=== PATIENT | female | born 1955 | race Caucasian/White ===

== ENCOUNTER → 2022-11-16 | Outpatient (CLI) | payer MEDICARE, SELFPAY ==
[2022-11-16 12:53] LABS: ALB/GLOB Ratio 1.3 RATIO (0.9-2.4); AST(SGOT) 11 U/L (15-37); Alanine Aminotransfer ALT/SGPT 17 U/L (13-56); Albumin, Serum 3.6 g/dL (3.2-5.0); Alkaline Phosphatase 60 U/L (45-117); Anion Gap 6 (5-15); BUN 9 mg/dL (7-18); BUN/Creat Ratio 9.8 RATIO (10-20); Calcium,Total 9.1 mg/dL (8.5-10.1); Chloride 108 mmol/L (98-107); Cholesterol 237 mg/dL (200); Creatinine, Serum 0.92 mg/dL (0.55-1.02); EST Glomerular Filtration Rate 64 mL/min (>60); Est Glom Filt Rate - Afr Amer 78 mL/min (>60); Globulin 2.8 g/dL (2.2-4.2); Glucose 99 mg/dL (74-106); High Density Lipoprotein 39 mg/dL; Potassium 4.2 mmol/L (3.5-5.1); Protein, Total 6.4 g/dL (6.4-8.2); Sodium Level 141 mmol/L (136-145); Triglycerides 137 mg/dL; Very Low Density Lipoprotein 27 mg/dL (5-40)
== END | disposition home or self-care (01) ==
LOC: MFPLAB 11:20
PROVIDERS: PCP Family Medicine; Referring Provider Family Medicine; Visit Provider Family Medicine
DX: E78.2 Mixed hyperlipidemia (principal)
CPT/HCPCS: 36415; 80053; 80061

== ENCOUNTER → 2023-12-27 | Outpatient (CLI) | payer MEDICARE, SELFPAY ==
[2023-12-27 15:41] LABS: Absolute Lymphocyte Count 1.78 X10^3/uL (0.83-4.51); Absolute Neutrophil Count 3.5 X10^3/uL (2.0-7.7); Basophil# 0.02 X10^3/uL; Basophil% 0.3 % (0-1); Eosinophil# 0.19 X10^3/uL; Eosinophils% 3.2 % (0-5); Hematocrit 44.8 % (37-47); Hemoglobin 14.1 g/dL (12.0-15.0); Lymphocyte # 1.78 X10^3/ul (0.83-4.51); Lymphocyte % 29.9 % (19-41); Mean Corp Hgb Conc 31.5 g/dL (32-36); Mean Corpuscular Hgb 29.4 pg (27.0-32.0); Mean Corpuscular Volume 93.3 fL (81-99); Mean Platelet Vol. 9.7 fl (6.2-12.0); Monocyte# 0.43 X10^3/uL; Monocyte% 7.2 % (0-10); NRBC Flagged by Analyzer 0 % (0-5); Neutrophil # 3.53 X10^3/uL (2.7-7.7); Neutrophil % 59.2 % (47-70); Platelet Count 233 K/mm3 (150-450); RBC Distribution Width CV 13.2 % (11.6-14.6); RBC Distribution Width SD 45.9 fl (35.1-43.9)
[2023-12-27 16:06] LABS: ALB/GLOB Ratio 1.2 RATIO (0.9-2.4); AST(SGOT) 18 U/L (15-37); Alanine Aminotransfer ALT/SGPT 25 U/L (13-56); Albumin, Serum 3.7 g/dL (3.2-5.0); Alkaline Phosphatase 68 U/L (45-117); Anion Gap 5 (5-15); BUN 13 mg/dL (7-18); BUN/Creat Ratio 12.7 RATIO (10-20); Calcium,Total 9.4 mg/dL (8.5-10.1); Chloride 109 mmol/L (98-107); Cholesterol 238 mg/dL (200); Creatinine, Serum 1.02 mg/dL (0.55-1.02); EST Glomerular Filtration Rate 57 mL/min (>60); Est Glom Filt Rate - Afr Amer 69 mL/min (>60); Globulin 3.2 g/dL (2.2-4.2); Glucose 99 mg/dL (74-106); High Density Lipoprotein 37 mg/dL; Potassium 3.9 mmol/L (3.5-5.1); Protein, Total 6.9 g/dL (6.4-8.2); Sodium Level 141 mmol/L (136-145); Thyroid Stim Hormone (TSH) 1.63 uIU/mL (0.358-3.74); Triglycerides 176 mg/dL; Very Low Density Lipoprotein 35 mg/dL (5-40)
== END | disposition home or self-care (01) ==
LOC: MFPLAB 11:29
PROVIDERS: Family Medicine; PCP Family Medicine; Visit Provider Family Medicine
DX: E78.2 Mixed hyperlipidemia (principal); R06.02 Shortness of breath
CPT/HCPCS: 36415; 80053; 80061; 84443; 85025

== ENCOUNTER → 2024-01-10 | Outpatient (CLI) | payer MEDICARE, SELFPAY ==
--- NOTE | 2024-01-10 12:22 | BD_ITS ---
STUDY: DUAL ENERGY X-RAY ABSORPTIOMETRY / DXA REASON FOR EXAM: Female, 68 years old. [id number] TECHNIQUE: Bone Mineral Density (BMD) measurements of lumbar spine and bilateral hips were obtained. COMPARISON: None. FINDINGS: Lumbar Spine (L1-L4): g/cm2 (0.785) / T-score (-2.4) / Z-score (-0.3) Findings are suggestive of osteopenia with a high fracture risk. Left Femur Total: g/cm2 (0.803) / T-score (-1.1) / Z-score (-0.4) Left Femoral Neck: g/cm2 (0.584) / T-score (-2.4) / Z-score (-0.6) Right Femur Total: g/cm2 (0.794) / T-score (-1.2) / Z-score (0.3) Right Femoral Neck: g/cm2 (0.619) / T-score (-2.1) / Z-score (-0.3) BD/Dexa Bone Density Study IMPRESSION: The patient is considered osteopenic as outlined below according to World [employer] Organization (WHO) criteria with a high fracture risk. Reference Information: The T-score is the number of standard deviations above or below the standard which is normal for young adults at their peak bone mineral density. The World Health Organization (WHO) interprets the T-scores as follows: Above -1 Normal bone density Between -1 and -2.5 Osteopenia Equal to / or below -2.5 Osteoporosis As a practical clinical guideline, osteopenia may be graded as follows: Mild -1 through -1.5 Moderate -1.6 through -2.0 Severe -2.1 through -2.4 The Z-score is the number of standard deviations above or below age-matched controls. A Z-score of less than -1.5 would be considered abnormal. References: 1. NIH Osteoporosis and Related Bone Diseases www osteo.org 2. International Society for Clinical Densitometry www iscd.org 3. National Osteoporosis Foundation www nof.org Electronically Signed: Deandre John MD at 15:19 EDT ,
== END | disposition home or self-care (01) ==
LOC: OPBD 12:16
PROVIDERS: PCP Family Medicine; Referring Provider Family Medicine; Visit Provider Family Medicine
DX: M81.0 Age-related osteoporosis without current pathological fracture (principal)
CPT/HCPCS: 77080

== ENCOUNTER → 2024-02-02 | Outpatient (CLI) | payer MEDICARE, SELFPAY ==
--- NOTE | 2024-02-02 12:34 | ECHOD_ITS ---
Reason For Study: Mitral Valve Disorder Procedure This was a 2D Doppler, Color Flow transthoracic echocardiogram. Exam performed in department. Left Ventricle Normal LV size. The estimated ejection fraction is 60 %. No evidence for diastolic dysfunction. No regional wall motion abnormalities noted. Right Ventricle Normal RV size. Normal systolic function. Atria Normal left atrium. Normal right atrium. No doppler evidence for ASD. Mitral Valve There is no mitral valve stenosis. Trivial mitral valve insufficiency. Tricuspid Valve There is no tricuspid stenosis. Trivial tricuspid valve insufficiency. Unable to estimate RV systolic pressure due to insufficient tricuspid regurgitant envelope. Aortic Valve Trisinus/trileaflet aortic valve. There is no aortic stenosis. Trivial aortic valve insufficiency. Pulmonic Valve There is no pulmonic valvular stenosis. No pulmonic valve insufficiency. Great Vessels Normal aortic root. Pericardium/Pleural No pericardial effusion. MMode/2D Measurements & Calculations LVIDd: 4.2 cm IVSd: 0.94 cm LA dimension: 3.7 cm LVIDs: 2.9 cm LVPWd: 0.87 cm RVDd: 3.8 cm FS: 32.0 % LAV(MOD-bp): 51.4 ml LVAd ap4: 25.5 cm2 SV(MOD-sp4): 40.2 ml LAV(MOD-bp) Indexed: 26.6 ml/m2 LVLd ap4: 7.5 cm LAV(MOD-sp2): 57.0 ml EDV(MOD-sp4): 69.7 ml LAV(MOD-sp4): 40.8 ml EDV(sp4-el): 73.6 ml LVAs ap4: 15.4 cm2 LVLs ap4: 6.6 cm ESV(MOD-sp4): 29.5 ml ESV(sp4-el): 30.2 ml EF(MOD-sp4): 57.7 % EF(sp4-el): 58.9 % SV(sp4-el): 43.4 ml LA A4 area: 15.3 cm2 RA A4 area: 14.0 cm2 TAPSE: 2.3 cm Time Measurements MV dec time: 0.16 sec Doppler Measurements & Calculations MV E max carlos: 56.6 cm/sec Lat Peak E' Carlos: 6.8 cm/sec Med Peak E' Carlos: 6.6 cm/sec MV A max carlos: 73.4 cm/sec E/E' lat: 8.3 E/E' med: 8.6 MV E/A: 0.77 MV V2 max: 93.3 cm/sec MV P1/2t max carlos: 62.0 cm/sec Ao V2 max: 128.7 cm/sec MV max P.5 mmHg MV P1/2t: 55.0 msec Ao max P.6 mmHg MV V2 mean: 44.1 cm/sec MV dec slope: 330.1 cm/sec2 Ao V2 mean: 90.3 cm/sec MV mean P.95 mmHg Ao mean P.7 mmHg MV V2 VTI: 21.4 cm MVA(P1/2t): 4.0 cm2 Ao V2 VTI: 33.5 cm AV (velocity ratio): 0.61 AI max carlos: 456.0 cm/sec LV V1 max: 82.9 cm/sec PA V2 max: 78.6 cm/sec AI max P.2 mmHg LV V1 max P.8 mmHg PA V2 mean: 63.0 cm/sec AI dec slope: 382.4 cm/sec2 LV V1 mean P.6 mmHg AI P1/2t: 349.3 msec LV V1 mean: 61.3 cm/sec LV V1 VTI: 20.5 cm TR max carlos: 253.1 cm/sec TR max P.6 mmHg ECHO/Echo Complete Interpretation Summary The estimated ejection fraction is 60 %. No evidence for diastolic dysfunction. Trivial mitral valve insufficiency. Trivial aortic valve insufficiency. Ordering Physician: Meme Logan Referring Physician: Meme Logan Performed By: Zeyad Spicer RCS
== END | disposition home or self-care (01) ==
LOC: CVS 12:33
PROVIDERS: PCP Family Medicine; Referring Provider Family Medicine; Visit Provider Family Medicine
DX: R06.02 Shortness of breath (principal); I05.9 Rheumatic mitral valve disease, unspecified
CPT/HCPCS: 93306

== ENCOUNTER → 2024-11-04 | Outpatient (CLI) | payer MEDICARE, SELFPAY ==
--- NOTE | 2024-11-04 11:04 | RAD_ITS ---
EXAM: XR LUMBOSACRAL SPINE, 2 OR 3 VIEWS CLINICAL INDICATION: Back pain TECHNIQUE: Frontal and lateral views of the lumbar spine and sacrum. COMPARISON: No relevant prior studies available. FINDINGS: VERTEBRAE: Grade 1 degenerative anterolisthesis of L4 on L5. Preserved vertebral body height. No fracture. No other spondylolisthesis. Preservation of the normal lumbar lordosis. No significant facet arthropathy. SPACES: No acute findings. Disc spaces are maintained. GASTROINTESTINAL TRACT: Unremarkable as visualized. Included bowel gas pattern is non-obstructive. RAD/Lumbar Spine 2 or 3 Views IMPRESSION: No acute findings in the lumbar spine. No acute or healing fracture or malalignment Electronically Signed: Ruben Guerrero MD at 13:09 EST ,
--- NOTE | 2024-11-04 11:06 | RAD_ITS ---
STUDY: X-RAY - PELVIS AND RIGHT HIP REASON FOR EXAM: Female, 68 years old. Hip pain. TECHNIQUE: 3 views of the pelvis and right hip. COMPARISON: None. FINDINGS: There is a non-specific bowel gas pattern. Normal visualized soft tissue structures. Normal bilateral iliac wings, sacroiliac joints and visualized sacrum. Normal bilateral superior and inferior pubic rami. Normal pubic symphysis. Normal bilateral ischial tuberosities. Normal visualized femoral head. Normal acetabulum. Normal hip joint. There is no demonstrated acute fracture. RAD/HIP, UNI W/ Pelvis 2-3 Views IMPRESSION: Normal x-ray examination of the pelvis and right hip. Electronically Signed: Raul Ace MD at 16:12 EST ,
== END | disposition home or self-care (01) ==
LOC: MTRAD 11:04
PROVIDERS: PCP Family Medicine; Referring Provider Family Medicine; Visit Provider Family Medicine
DX: M54.40 Lumbago with sciatica, unspecified side (principal)
CPT/HCPCS: 72100; 73502

== ENCOUNTER 2025-06-14 09:16 | Emergency (ER) | payer MEDICARE, SELFPAY ==
[2025-06-14 09:21] VITALS: BP 137/94; PULSE 76; RESP 18; TEMP 36.9; O2SAT 98
[2025-06-14 09:27] VITALS: BMI 34.7
--- NOTE | 2025-06-14 09:32 | RAD_ITS ---
PROCEDURE: FOOT MIN 3 VIEWS 06/14/2025 REASON FOR EXAM: PAIN TECHNIQUE: FOOT MIN 3 VIEWS Laterality: Right COMPARISON: None. FINDINGS: Bones: No acute bony abnormalities. Joints: Unremarkable. No dislocation. Soft tissues: No soft tissue abnormalities. Other: RAD/Foot min 3 Views IMPRESSION: No acute osseous abnormalities. Reading Location: [id number]
--- OUTSIDE RECORDS SUMMARY | 2025-06-14 10:12 | XMS RPT_ITS | CCD ---
Author Organization [facility] Inform ion Partnership [facility] Care Team Providers Care Process Engineering Intern Name Role Phone MD Meme Logan Primary Care Provider Dr. Herminio Timmons Attending Provider [phone] Ladonna Pond Attending Unavailable Ladonna Pond Referring Unavailable Desmond, Meme Primary Care Unavailable Ladonna Pond Primary Care Unavailable Ladonna Pond Attending Unavailable Desmond, Meme Referring Unavailable Desmond, Meme Primary Care Unavailable Meme Logan Attending Unavailable Meme Logan Referring Unavailable Desmond, Marlineon Primary Care Unavailable Desmond, Meme Attending Unavailable Herminio Timmons Attending Unavailabl e Desmond, Meme Primary Care Unavailable Problems Active Problems Problem Classification Problem Date Documented Da te Episodic/Chronic Disorders of lipid metabolism (1 source) Mixed hyperlipidemia; Translations: [Mixed hyperlipidemia] Onset: 01-03-2024 Chronic Osteoporosis (1 source) Age-related osteoporosis without current pathological fracture; Translations: [Age-related osteoporosis without current pathological fracture] Onset: 01-16-2024 Chronic Spondylosis; intervertebral disc disorders; other back problems (1 source) Lumbago with sciatica, unspecified side; Translations: [Lumbago with sciatica, unspecified side] Onset: 11-25-2024 Episodic Past or Other Problems Problem Classification Problem Date Documented Da te Episodic/Chronic Other lower respiratory disease (1 source) Shortness of breath; Translations: [Shortness of breath] Onset: 02-07-2024 Episodic Results Test Name Value Interpretation Reference Range Facility HIP, UNI W/ Pelvis 2-3 Views on 11-04-2024 HIP, UNI W/ Pelvis 2-[address] [facility] Imaging Services [address] [place] [id number] HIP, UNI W/ Pelvis 2-3 Views MR#: [id number] Acct: [id number] Name: ASHLEY AYALA Rep #: [id number] : 1955 F 68 From: Raul Ace MD PCP: Dr. Meme Logan MD Status: REG CLI Study: HIP, UNI W/ Pelvis 2-3 Views Date of Exam: Exam# [id number] Ordering Dr: Meme Logan MD [id number] STUDY: X-RAY - PELVIS AND RIGHT HIP REASON FOR EXAM: Female, 68 years old. Hip pain. TECHNIQUE: 3 views of the pelvis and right hip. COMPARISON: None. FINDINGS: There is a non-specific bowel gas pattern. Normal visualized soft tissue structures. Normal bilateral iliac wings, sacroiliac joints and visualized sacrum. Normal bilateral superior and inferior pubic rami. Normal pubic symphysis. Normal bilateral ischial tuberosities. Normal visualized femoral head. Normal acetabulum. Normal hip joint. There is no demonstrated acute fracture. RAD/HIP, UNI W/ Pelvis 2-3 Views IMPRESSION: Normal x-ray examination of the pelvis and right hip. Electronically Signed: Raul Ace MD at 16:12 EST Reading Location ID and State: [facility] / [place] , Service support , CC: Dr. Meme Logan MD Feeder Operator: Signed Normal [facility] Lumbar Spine 2 or 3 Viewson 11-04-2024 Lumbar Spine 2 or [address] [facility] Imaging Services [address], [place] [address] Lumbar Spine 2 or 3 Views MR#: [id number] Acct: [id number] Name: ASHLEY AYALA Rep #: [id number] : 1955 F 68 From: Ruben Guerrero MD PCP: Dr. Meme Logan MD Status: REG CLI Study: Lumbar Spine 2 or 3 Views Date of Exam: Exam# [id number] Ordering Dr: Meme Logan MD [id number] EXAM: XR LUMBOSACRAL SPINE, 2 OR 3 VIEWS CLINICAL INDICATION: Back pain TECHNIQUE: Frontal and lateral views of the lumbar spine and sacrum. COMPARISON: No relevant prior studies available. FINDINGS: VERTEBRAE: Grade 1 degenerative anterolisthesis of L4 on L5. Preserved vertebral body height. No fracture. No other spondylolisthesis. Preservation of the normal lumbar lordosis. No significant facet arthropathy. SPACES: No acute findings. Disc spaces are maintained. GASTROINTESTINAL TRACT: Unremarkable as visualized. Included bowel gas pattern is non-obstructive. RAD/Lumbar Spine 2 or 3 Views IMPRESSION: No acute findings in the lumbar spine. No acute or healing fracture or malalignment Electronically Signed: Ruben Guerrero MD at 13:09 EST Reading Location ID and State: [facility] / [place] Tel , Service support , CC: Dr. Meme Logan MD Feeder Operator: Signed Normal [facility] Echo Completeon 02-02-2024 Echo Complete [facility] Cardiovascular Services [address] [place] [address] Echo Complete 02/02/24 1302 MR#: [id number] Acct: [id number] Name: ASHLEY AYALA Rep #: [id number] : 1955 68 From: Herminio Timmons MD Attending Dr: Dr. Meme Logan MD Status: REG C Ordering Dr: Meme Logan MD Date: 02/02/24 Location: [facility] Sex: F C Admitted: Reason For Study: Mitral Valve Disorder Procedure This was a 2D Doppler, Color Flow transthoracic echocardiogram. Exam performed in department. Left Ventricle Normal LV size. The estimated ejection fraction is 60 %. No evidence for diastolic dysfunction. No regional wall motion abnormalities noted. Right Ventricle Normal RV size. Normal systolic function. Atria Normal left atrium. Normal right atrium. No doppler evidence for ASD. Mitral Valve There is no mitral valve stenosis. Trivial mitral valve insufficiency. Tricuspid Valve There is no tricuspid stenosis. Trivial tricuspid valve insufficiency. Unable to estimate RV systolic pressure due to insufficient tricuspid regurgitant envelope. Aortic Valve Trisinus/trileaflet aortic valve. There is no aortic stenosis. Trivial aortic valve insufficiency. Pulmonic Valve There is no pulmonic valvular stenosis. No pulmonic valve insufficiency. Great Vessels Normal aortic root. Pericardium/Pleural No pericardial effusion. MMode/2D Measurements Calculations LVIDd: 4.2 cm IVSd: 0.94 cm LA dimension: 3.7 cm LVIDs: 2.9 cm LVPWd: 0.87 cm RVDd: 3.8 cm FS: 32.0 % _ LAV(MOD-bp): 51.4 ml LVAd ap4: 25.5 cm2 SV(MOD-sp4): 40.2 ml LAV(MOD-bp) Indexed: 26.6 ml/m2 LVLd ap4: 7.5 cm LAV(MOD-sp2): 57.0 ml EDV(MOD-sp4): 69.7 ml LAV(MOD-sp4): 40.8 ml EDV(sp4-el): 73.6 ml LVAs ap4: 15.4 cm2 LVLs ap4: 6.6 cm ESV(MOD-sp4): 29.5 ml ESV(sp4-el): 30.2 ml EF(MOD-sp4): 57.7 % EF(sp4-el): 58.9 % _ SV(sp4-el): 43.4 ml LA A4 area: 15.3 cm2 RA A4 area: 14.0 cm2 _ TAPSE: 2.3 cm Time Measurements MV dec time: 0.16 sec Doppler Measurements Calculations MV E max carlos: 56.6 cm/sec Lat Peak E' Carlos: 6.8 cm/sec Med Peak E' Carlos: 6.6 cm/sec MV A max carlos: 73.4 cm/sec E/E' lat: 8.3 E/E' med: 8.6 MV E/A: 0.77 _ MV V2 max: 93.3 cm/sec MV P1/2t max carlos: 62.0 cm/sec Ao V2 max: 128.7 cm/sec MV max P.5 mmHg MV P1/2t: 55.0 msec Ao max P.6 mmHg MV V2 mean: 44.1 cm/sec MV dec slope: 330.1 cm/sec2 Ao V2 mean: 90.3 cm/sec MV mean P.95 mmHg Ao mean P.7 mmHg MV V2 VTI: 21.4 cm MVA(P1/2t): 4.0 cm2 Ao V2 VTI: 33.5 cm AV (velocity ratio): 0.61 _ AI max carlos: 456.0 cm/sec LV V1 max: 82.9 cm/sec PA V2 max: 78.6 cm/sec AI max P.2 mmHg LV V1 max P.8 mmHg PA V2 mean: 63.0 cm/sec AI dec slope: 382.4 cm/sec2 LV V1 mean P.6 mmHg AI P1/2t: 349.3 msec LV V1 mean: 61.3 cm/sec LV V1 VTI: 20.5 cm _ TR max carlos: 253.1 cm/sec TR max P.6 mmHg ECHO/Echo Complete Interpretation Summary The estimated ejection fraction is 60 %. No evidence for diastolic dysfunction. Trivial mitral valve insufficiency. Trivial aortic valve insufficiency. Ordering Physician: Meme Logan Referring Physician: Meme Logan Performed By: Zeyad Spicer RCS 02/02/24 1519 Date Herminio Timmons MD CC: Dr. Meme Logan MD Date Dictated: 02/02/24 1302 Date Transcribed: 02/02/24 1519 Feeder Operator: Signed Normal [facility] Dexa Bone Density Studyon Dexa Bone Density Study [facility] Imaging Services [address] [place] [address] Dexa Bone Density Study MR#: [id number] Acct: [id number] Name: ASHLEY AYALA Rep #: [id number] : 1955 F 68 From: Deandre manzo MD PCP: Dr. Meme Logan MD Status: REG CLI Study: Dexa Bone Density Study Date of Exam: 01/10/24 Exam# [id number] Ordering Dr: Ladonna Pond DO [id number] STUDY: DUAL ENERGY X-RAY ABSORPTIOMETRY / DXA REASON FOR EXAM: Female, 68 years old. [id number] TECHNIQUE: Bone Mineral Density (BMD) measurements of lumbar spine and bilateral hips were obtained. COMPARISON: None. FINDINGS: Lumbar Spine (L1-L4): g/cm2 (0.785) / T-score (-2.4) / Z-score (-0.3) Findings are suggestive of osteopenia with a high fracture risk. Left Femur Total: g/cm2 (0.803) / T-score (-1.1) / Z-score (-0.4) Left Femoral Neck: g/cm2 (0.584) / T-score (-2.4) / Z-score (-0.6) Right Femur Total: g/cm2 (0.794) / T-score (-1.2) / Z-score (0.3) Right Femoral Neck: g/cm2 (0.619) / T-score (-2.1) / Z-score (-0.3) BD/Dexa Bone Density Study IMPRESSION: The patient is considered osteopenic as outlined below according to World [employer] Organization (WHO) criteria with a high fracture risk. Reference Information: The T-score is the number of standard deviations above or below the standard which is normal for young adults at their peak bone mineral density. The World Health Organization (WHO) interprets the T-scores as follows: Above -1 Normal bone density Between -1 and -2.5 Osteopenia Equal to / or below -2.5 Osteoporosis As a practical clinical guideline, osteopenia may be graded as follows: Mild -1 through -1.5 Moderate -1.6 through -2.0 Severe -2.1 through -2.4 The Z-score is the number of standard deviations above or below age-matched controls. A Z-score of less than -1.5 would be considered abnormal. References: 1. NIH Osteoporosis and Related Bone Diseases www osteo.org 2. International Society for Clinical Densitometry www iscd.org 3. National Osteoporosis Foundation www nof.org Electronically Signed: Deandre John MD at 15:19 EDT , CC: Dr. Meme Logan MD; Ladonna Pond DO Feeder Operator: Signed Normal [facility] Absolute lymphocyte countOrd ered By: Meme Logan on 12-27-2023 Lymphocytes Auto (Unsp spec) [#/Vol] 1.78 10*3/uL 0.83-4.51 [facility] Automated lymphocyte count a s percentage of total leukocytesOrdered By: Meme Logan on 12-27-2023 Lymphocytes/100 WBC Auto (Unsp spec) 29.9 % 19-41 [facility] Basophil percentageOrdered B y: Meme Logan on 12-27-2023 Basophils/100 WBC (Bld) 0.3 % 0-1 [facility] Bilirubin [Mass/Vol] 0.70 mg/dL 0.20-1.00 [facility] Comment on above: For patients on eltr ombopag therapy, use of Dimension [place] TBIL is not recommended. Chloride [Moles/Vol] 109 mmol/L 98-107 [facility] Cholesterol [Mass/Vol] 238 mg/dL <200 [facility] Comment on above: <200 mg/dL Desirable 200-240 mg/dL Borderline >240 mg/dL High Risk Eosinophils/100 WBC (Bld) 3.2 % 0-5 [facility] Glucose [Mass/Vol] 99 mg/dL 74-106 [facility] Hemoglobin (Bld) [Mass/Vol] 14.1 g/dL 12.0-15.0 [facility] Monocytes/100 WBC (Bld) 7.2 % 0-10 [facility] Neutrophils (Bld) [#/Vol] 3.5 10*3/uL 2.0-7.7 [facility] Neutrophils/100 WBC (Bld) 59.2 % 47-70 [facility] Potassium [Moles/Vol] 3.9 mmol/L 3.5-5.1 [facility] Protein [Mass/Vol] 6.9 g/dL 6.4-8.2 [facility] Sodium [Moles/Vol] 141 mmol/L 136-145 [facility] Triglyceride [Mass/Vol] 176 mg/dL <199 [facility] Comment on above: The drugs N-Acetylcy steine and Metamizole may falsely depress this assay.Serum Triglycerides Reference Interval Normal <150 mg/dL Borderline high 150 - 199 mg/dL High 200 - 499 mg/dL Very High > or = 500 mg/dL WBC (Bld) [#/Vol] 6.0 10*3/uL 4.4-11.0 [facility] CBC W/Diff, Automatedon Absolute Lymph 1.78 X10 3/uL Normal 0.83-4.51 [facility] Comment on above: Order Comment: Order Date: 12/27/23 Order Info: 0184-1 - CBCD Performed By: #### L 100.0100, L500.4100, L501.0620, L500.4050 #### [facility] [address] [place], [address] Absolute Neut 3.5 X10 3/uL Normal 2.0-7.7 [facility] Comment on above: Order Comment: Order Date: 12/27/23 Order Info: 0184-1 - CBCD Performed By: #### L 100.0100, L500.4100, L501.9520, L500.4050 #### [facility] [address] [place], [address] Basophils/100 WBC (Bld) 0.3 % Normal 0-1 [facility] Comment on above: Order Comment: Order Date: 12/27/23 Order Info: 0184-1 - CBCD Performed By: #### L 100.0100, L500.4100, L501.9520, L500.4050 #### [facility] [address] [place], [address] Eosinophils/100 WBC (Bld) 3.2 % Normal 0-5 [facility] Comment on above: Order Comment: Order Date: 12/27/23 Order Info: 0184-1 - CBCD Performed By: #### L 100.0100, L500.4100, L501.9520, L500.4050 #### [facility] [address] [place], [address] Erythrocyte distribution width (RBC) [Ratio] 13.2 % Normal 11.6-14.6 [facility] Comment on above: Order Comment: Order Date: 12/27/23 Order Info: 0184-1 - CBCD Performed By: #### L 100.0100, L500.4100, L501.9520, L500.4050 #### [facility] [address] [place], [address] Hematocrit (Bld) [Volume fraction] 44.8 % Normal 37-47 [facility] Comment on above: Order Comment: Order Date: 12/27/23 Order Info: 0184-1 - CBCD Performed By: #### L 100.0100, L500.4100, L501.9520, L500.4050 #### [facility] [address] [place], [address] Hemoglobin (Bld) [Mass/Vol] 14.1 g/dL Normal 12.0-15.0 [facility] Comment on above: Order Comment: Order Date: 12/27/23 Order Info: 018- - CBCD Performed By: #### L 100.0100, L500.4100, L501.9520, L500.4050 #### [facility] [address] [place], [address] IG% 0.200 Normal 0.0-0.9 [facility] Comment on above: Order Comment: Order Date: 12/27/23 Order Info: 01801-21 - CBCD Result Comment: IG% - Immature Granulocytes (promyelocytes, myelocytes and metamyelocytes) > 1% indicates that a LEFT SHIFT is Present. Performed By: #### L 100.0100, L500.4100, L501.9520, L500.4050 #### [facility] [address] [place], [address] Lymphocytes/100 WBC (Bld) 29.9 % Normal 19-41 [facility] Comment on above: Order Comment: Order Date: 12/27/23 Order Info: 01801-21 - CBCD Performed By: #### L 100.0100, L500.4100, L501.9520, L500.4050 #### [facility] [address] [place], [address] MCH (RBC) [Entitic mass] 29.4 pg Normal 27.0-32.0 [facility] Comment on above: Order Comment: Order Date: 12/27/23 Order Info: 01801-21 - CBCD Performed By: #### L 100.0100, L500.4100, L501.9520, L500.4050 #### [facility] [address] [place], [address] MCHC (RBC) [Mass/Vol] 31.5 g/dL Low 32-36 [facility] Comment on above: Order Comment: Order Date: 12/27/23 Order Info: 0184-1 - CBCD Performed By: #### L 100.0100, L500.4100, L501.9520, L500.4050 #### [facility] [address] [place], [address] MCV (RBC) [Entitic vol] 93.3 fL Normal 81-99 [facility] Comment on above: Order Comment: Order Date: 12/27/23 Order Info: 0184-1 - CBCD Performed By: #### L 100.0100, L500.4100, L501.9520, L500.4050 #### [facility] [address] [place], [address] Monocytes/100 WBC (Bld) 7.2 % Normal 0-10 [facility] Comment on above: Order Comment: Order Date: 12/27/23 Order Info: 0184-1 - CBCD Performed By: #### L 100.0100, L500.4100, L501.9520, L500.4050 #### [facility] [address] [place], [address] Neutrophils/100 WBC (Bld) 59.2 % Normal 47-70 [facility] Comment on above: Order Comment: Order Date: 12/27/23 Order Info: 0184-1 - CBCD Performed By: #### L 100.0100, L500.4100, L501.9520, L500.4050 #### [facility] [address] [place], [address] Nucleated RBC (Bld) [#/Vol] 0 10*3/uL Normal 0-5 [facility] Comment on above: Order Comment: Order Date: 12/27/23 Order Info: 0184-1 - CBCD Performed By: #### L 100.0100, L500.4100, L501.9520, L500.4050 #### [facility] [address] [place], [address] Platelet mean volume (Bld) [Entitic vol] 9.7 fL Normal 6.2-12.0 [facility] Comment on above: Order Comment: Order Date: 12/27/23 Order Info: 0184-1 - CBCD Performed By: #### L 100.0100, L500.4100, L501.9520, L500.4050 #### [facility] [address] [place], [address] Platelets (Bld) [#/Vol] 233 10*3/uL Normal 150-450 [facility] Comment on above: Order Comment: Order Date: 12/27/23 Order Info: 0184- - CBCD Performed By: #### L 100.0100, L500.4100, L501.9520, L500.4050 #### [facility] [address] [place], [address] RBC (Bld) [#/Vol] 4.80 10*6/uL Normal 4.2-5.4 [facility] Comment on above: Order Comment: Order Date: 12/27/23 Order Info: 0184-1 - CBCD Performed By: #### L 100.0100, L500.4100, L501.9520, L500.4050 #### [facility] [address] [place], [address] RDW SD 45.9 fl High 35.1-43.9 [facility] Comment on above: Order Comment: Order Date: 12/27/23 Order Info: 0184-1 - CBCD Performed By: #### L 100.0100, L500.4100, L501.9520, L500.4050 #### [facility] [address] [place], [address] WBC (Bld) [#/Vol] 6.0 10*3/uL Normal 4.4-11.0 [facility] Comment on above: Order Comment: Order Date: 12/27/23 Order Info: 0184-1 - CBCD Performed By: #### L 100.0100, L500.4100, L501.9520, L500.4050 #### [facility] [address] [place], [address] Comprehensive Metabolic Prof ilon 12-27-2023 Albumin [Mass/Vol] 3.7 g/dL Normal 3.2-5.0 [facility] Comment on above: Order Comment: Order Date: 12/27/23 Order Info: 0786-1 - CMP Order Info: [id number] - LIPID Order Info: 301-3 - TSH Performed By: #### L 100.0100, L500.4100, L501.9520, L500.4050 #### [facility] [address] [place], [address] Albumin/Globulin [Mass ratio] 1.2 {ratio} Normal 0.9-2.4 [facility] Comment on above: Order Comment: Order Date: 12/27/23 Order Info: 0786-1 - CMP Order Info: [id number] - LIPID Order Info: 301-3 - TSH Performed By: #### L 100.0100, L500.4100, L501.9520, L500.4050 #### [facility] [address] [place], [address] ALK P 68 U/L Normal 45-117 [facility] Comment on above: Order Comment: Order Date: 12/27/23 Order Info: 0786-1 - CMP Order Info: [id number] - LIPID Order Info: 301-3 - TSH Performed By: #### L 100.0100, L500.4100, L501.9520, L500.4050 #### [facility] [address] [place], [address] ALT [Catalytic activity/Vol] 25 U/L Normal 13-56 [facility] Comment on above: Order Comment: Order Date: 12/27/23 Order Info: 785- - CMP Order Info: - LIPID Order Info: 3015-12 - TSH Performed By: #### L 100.0100, L500.4100, L501.9520, L500.4050 #### [facility] [address] [place], [address] AST [Catalytic activity/Vol] 18 U/L Normal 15-37 [facility] Comment on above: Order Comment: Order Date: 12/27/23 Order Info: 785-10 - CMP Order Info: - LIPID Order Info: 3015-12 - TSH Performed By: #### L 100.0100, L500.4100, L501.9520, L500.4050 #### [facility] [address] [place], [address] Bilirubin [Mass/Vol] 0.70 mg/dL Normal 0.20-1.00 [facility] Comment on above: Order Comment: Order Date: 12/27/23 Order Info: 785-10 - CMP Order Info: - LIPID Order Info: 3015-12 - TSH Result Comment: For patients on eltrombopag therapy, use of Dimension [place] TBIL is not recommended. Performed By: #### L 100.0100, L500.4100, L501.9520, L500.4050 #### [facility] [address] [place], [address] BUN/CRE 12.7 RATIO Normal 10-20 [facility] Comment on above: Order Comment: Order Date: 12/27/23 Order Info: 785-10 - CMP Order Info: [id number] - LIPID Order Info: 3015-12 - TSH Performed By: #### L 100.0100, L500.4100, L501.9520, L500.4050 #### [facility] [address] [place], [address] CA,Total 9.4 mg/dL Normal 8.5-10.1 [facility] Comment on above: Order Comment: Order Date: 12/27/23 Order Info: 0786-1 - CMP Order Info: [id number] - LIPID Order Info: 3015-12 - TSH Performed By: #### L 100.0100, L500.4100, L501.9520, L500.4050 #### [facility] [address] [place], [address] Chloride [Moles/Vol] 109 mmol/L High 98-107 [facility] Comment on above: Order Comment: Order Date: 12/27/23 Order Info: 785-10 - CMP Order Info: - LIPID Order Info: 3015-12 - TSH Performed By: #### L 100.0100, L500.4100, L501.9520, L500.4050 #### [facility] [address], [address] CO2 [Moles/Vol] 27.0 mmol/L Normal 21.0-32.0 [facility] Comment on above: Order Comment: Order Date: 12/27/23 Order Info: 07 - CMP Order Info: [id number] - LIPID Order Info: 3015-12 - TSH Performed By: #### L 100.0100, L500.4100, L501.9520, L500.4050 #### [facility] [address] [place], [address] Creatinine [Mass/Vol] 1.02 mg/dL Normal 0.55-1.02 [facility] Comment on above: Order Comment: Order Date: 12/27/23 Order Info: 0786-1 - CMP Order Info: [id number] - LIPID Order Info: 3015-12 - TSH Result Comment: The validity of the calculated GFR GFRAA in patients over 70 years has not been determined. Clinical correlation is essential. Performed By: #### L 100.0100, L500.4100, L501.9520, L500.4050 #### [facility] [address] [place], [address] EST GFR - AA 69 mL/min Normal >60 [facility] Comment on above: Order Comment: Order Date: 12/27/23 Order Info: 07- - CMP Order Info: [id number] - LIPID Order Info: 3 - TSH Result Comment: Afri can [place] GFR Calc Performed By: #### L 100.0100, L500.4100, L501.9520, L500.4050 #### [facility] [address] [place], [address] GAP 5 Normal 5-15 [facility] Comment on above: Order Comment: Order Date: 12/27/23 Order Info: 785-10 - CMP Order Info: [id number] - LIPID Order Info: 3015-12 - TSH Performed By: #### L 100.0100, L500.4100, L501.9520, L500.4050 #### [facility] [address] [place], [address] GFR/1.73 sq M.predicted among non-blacks MDRD (S/P/Bld) [Vol rate/Area] 57 mL/min/{1.73_m2} Low >60 [facility] Comment on above: Order Comment: Order Date: 12/27/23 Order Info: 07 - CMP Order Info: 13687-9 - LIPID Order Info: 3015-3 - TSH Result Comment: Non- GFR Calc Performed By: #### L 100.0100, L500.4100, L501.9520, L500.4050 #### [facility] [address] [place], [address] Globulin (S) [Mass/Vol] 3.2 g/dL Normal 2.2-4.2 [facility] Comment on above: Order Comment: Order Date: 12/27/23 Order Info: 07-1 - CMP Order Info: [id number] - LIPID Order Info: 3 - TSH Performed By: #### L 100.0100, L500.4100, L501.9520, L500.4050 #### [facility] [address] [place], [address] Glucose [Mass/Vol] 99 mg/dL Normal 74-106 [facility] Comment on above: Order Comment: Order Date: 12/27/23 Order Info: 785-1 - CMP Order Info: [id number] - LIPID Order Info: 3015-12 - TSH Performed By: #### L 100.0100, L500.4100, L501.9520, L500.4050 #### [facility] [address] [place], [address] Potassium [Moles/Vol] 3.9 mmol/L Normal 3.5-5.1 [facility] Comment on above: Order Comment: Order Date: 12/27/23 Order Info: 07 - CMP Order Info: [id number] - LIPID Order Info: 3015-12 - TSH Performed By: #### L 100.0100, L500.4100, L501.9520, L500.4050 #### [facility] [address] [place], [address] Sodium [Moles/Vol] 141 mmol/L Normal 136-145 [facility] Comment on above: Order Comment: Order Date: 12/27/23 Order Info: [id number] - CMP Order Info: [id number] - LIPID Order Info: [id number] - TSH Performed By: #### L 100.0100, L500.4100, L501.9520, L500.4050 #### [facility] [address] [place], [address] T PROT 6.9 g/dL Normal 6.4-8.2 [facility] Comment on above: Order Comment: Order Date: 12/27/23 Order Info: [id number] - CMP Order Info: [id number] - LIPID Order Info: [id number] - TSH Performed By: #### L 100.0100, L500.4100, L501.9520, L500.4050 #### [facility] [address] [place], [place], [address] Urea nitrogen [Mass/Vol] 13 mg/dL Normal 7-18 [facility] Comment on above: Order Comment: Order Date: 12/27/23 Order Info: [id number] - CMP Order Info: [id number] - LIPID Order Info: [id number] - TSH Performed By: #### L 100.0100, L500.4100, L501.9520, L500.4050 #### [facility] [address] [facility] [place], [place], [address] Determination of erythrocyte mean corpuscular volume (MCV)Ordered By: Meme Logan on 12-27-2023 MCV (RBC) [Entitic vol] 93.3 fL 81-99 [facility] Erythrocyte distribution wid th ratioOrdered By: Meme Logan on 12-27-2023 Erythrocyte distribution width (RBC) [Ratio] 13.2 % 11.6-14.6 [facility] Erythrocyte distribution wid th standard deviationOrdered By: Meme Logan on 12-27-2023 Erythrocyte distribution width (RBC) [Entitic vol] 45.9 fL 35.1-43.9 [facility] Hematocrit Auto (Bld) [Volum e fraction]Ordered By: Meme Logan on 12-27-2023 Hematocrit (Bld) [Volume fraction] 44.8 % 37-47 [facility] Immature granulocytes/100 WB C Auto (Bld)Ordered By: Meme Logan on 12-27-2023 Immature granulocytes/100 WBC (Bld) 0.200 % 0.0-0.9 [facility] Comment on above: IG% - Immature Granu locytes (promyelocytes, myelocytes and metamyelocytes) > 1% indicates that a LEFT SHIFT is Present. Laboratory - Chemistry and C hemistry - challengeOrdered By: Meme Logan on 12-27-2023 Albumin/Globulin [Mass ratio] 1.2 {ratio} 0.9-2.4 [facility] ALP [Catalytic activity/Vol] 68 U/L 45-117 [facility] ALT [Catalytic activity/Vol] 25 U/L 13-56 [facility] Cholesterol in HDL [Mass/Vol] 37 mg/dL >40 [facility] Comment on above: The drugs N-Acetylcy steine and Metamizole may falsely depress this assay. Reference Range HDL <40 mg/dL Low HDL Cholesterol HDL >or= 60 mg/dL High HDL Cholesterol Cholesterol in LDL [Mass/Vol] 166 mg/dL 0-130 [facility] CO2 [Moles/Vol] 27.0 mmol/L 21.0-32.0 [facility] Globulin (S) [Mass/Vol] 3.2 g/dL 2.2-4.2 [facility] Urea nitrogen/Creatinine [Mass ratio] 12.7 mg/mg 10-20 [facility] - Hematology and Cell countsOrdered By: Meme Logan on 12-27-2023 MCH (RBC) [Entitic mass] 29.4 pg 27.0-32.0 [facility] MCHC (RBC) [Mass/Vol] 31.5 g/dL 32-36 [facility] Nucleated RBC/100 WBC (Bld) [Ratio] 0 % 0-5 [facility] Platelet mean volume (Bld) [Entitic vol] 9.7 fL 6.2-12.0 [facility] Platelets (Bld) [#/Vol] 233 10*3/uL 150-450 [facility] Lipid Profileon 12-27-2023 Cholesterol [Mass/Vol] 238 mg/dL High 200 [facility] Comment on above: Order Comment: Order Date: 12/27/23 Order Info: [id number] - CMP Order Info: [id number] - LIPID Order Info: [id number] - TSH Result Comment: <200 mg/dL Desirable 200-240 mg/dL Borderline >240 mg/dL High Risk Performed By: #### L 100.0100, L500.4100, L501.9520, L500.4050 #### [facility] [address] [place], [address] Cholesterol in HDL [Mass/Vol] 37 mg/dL Low [facility] Comment on above: Order Comment: Order Date: 12/27/23 Order Info: [id number] - CMP Order Info: - LIPID Order Info: [id number] - TSH Result Comment: The drugs N-Acetylcysteine and Metamizole may falsely depress this assay. Reference Range HDL <40 mg/dL Low HDL Cholesterol HDL >or= 60 mg/dL High HDL Cholesterol Performed By: #### L 100.0100, L500.4100, L501.9520, L500.4050 #### [facility] [address] [place], [address] Cholesterol in LDL [Mass/Vol] 166 mg/dL High 0-130 [facility] Comment on above: Order Comment: Order Date: 12/27/23 Order Info: 07 - CMP Order Info: - LIPID Order Info: [id number] - TSH Performed By: #### L 100.0100, L500.4100, L501.9520, L500.4050 #### [facility] [address] [place], [place], [address] Cholesterol in VLDL [Mass/Vol] 35 mg/dL Normal 5-40 [facility] Comment on above: Order Comment: Order Date: 12/27/23 Order Info: [id number] - CMP Order Info: - LIPID Order Info: [id number] - TSH Performed By: #### L 100.0100, L500.4100, L501.9520, L500.4050 #### [facility] [address] [place], [address] Triglyceride [Mass/Vol] 176 mg/dL Normal [facility] Comment on above: Order Comment: Order Date: 12/27/23 Order Info: [id number] - CMP Order Info: [id number] - LIPID Order Info: [id number] - TSH Result Comment: The drugs N-Acetylcysteine and Metamizole may falsely depress this assay. Serum Triglycerides Reference Interval Normal <150 mg/dL Borderline high 150 - 199 mg/dL High 200 - 499 mg/dL Very High > or = 500 mg/dL Performed By: #### L 100.0100, L500.4100, L501.9520, L500.4050 #### [facility] [address] [place], [address] No Panel InformationOrdered By: Meme Logan on 12-27-2023 Estimated GFR (MDRD) Amer 69 mL/min >60 [facility] Comment on above: GFR Calc Estimated GFR (MDRD) Non-Af Amer 57 mL/min >60 [facility] Comment on above: Non- GFR Calc VLDL Cholesterol 35 mg/dL 5-40 [facility] RBC Auto (Bld) [#/Vol]Ordere d By: Meme oLgan on 12-27-2023 RBC (Bld) [#/Vol] 4.80 10*6/uL 4.2-5.4 [facility] Serum or plasma calcium ilsa urement (mass/volume)Ordered By: Meme Logan on 12-27-2023 Calcium [Mass/Vol] 9.4 mg/dL 8.5-10.1 [facility] Serum or plasma creatinine m easurement (mass/volume)Ordered By: Meme Logan on 12-27-2023 Creatinine [Mass/Vol] 1.02 mg/dL 0.55-1.02 [facility] Comment on above: The validity of the calculated GFR & GFRAA in patients over 70 years has not been determined. Clinical correlation is essential. Serum or plasma thyroid stim ulating hormone (TSH) measurement (units/volume)Ordered By: Meme Logan on 12-27-2023 TSH Qn 1.63 uIU/mL 0.358-3.74 [facility] Serum or plasma urea nitroge n measurement (mass/volume)Ordered By: Meme Logan on 12-27-2023 Urea nitrogen [Mass/Vol] 13 mg/dL 7-18 [facility] Thin prep Papanicolaou smear with manual screeningOrdered By: [facility] on 12-27-2023 Thin prep Papanicolaou smear with manual screening 3.7 g/dL 3.2-5.0 [facility] Thin prep Papanicolaou smear with manual screening 18 U/L 15-37 [facility] Thin prep Papanicolaou smear with manual screening 5 5-15 [facility] Thyroid Stim Hormone (TSH)on 12-27-2023 TSH 1.63 uIU/mL Normal 0.358-3.74 [facility] Comment on above: Order Comment: Order Date: 12/27/23 Order Info: [id number] - CMP Order Info: [id number] - LIPID Order Info: [id number] - TSH Performed By: #### L 100.0100, L500.4100, L501.9520, L500.4050 #### [facility] [address] [place], [address] Basophil percentageOrdered B y: Ladonna Pond on 11-16-2022 Bilirubin [Mass/Vol] 0.50 mg/dL 0.20-1.00 [facility] Comment on above: For patients on eltr ombopag therapy, use of Dimension [place] TBIL is not recommended. Chloride [Moles/Vol] 108 mmol/L 98-107 [facility] Cholesterol [Mass/Vol] 237 mg/dL <200 [facility] Comment on above: <200 mg/dL Desirable 200-240 mg/dL Borderline >240 mg/dL High Risk Glucose [Mass/Vol] 99 mg/dL 74-106 [facility] Potassium [Moles/Vol] 4.2 mmol/L 3.5-5.1 [facility] Protein [Mass/Vol] 6.4 g/dL 6.4-8.2 [facility] Sodium [Moles/Vol] 141 mmol/L 136-145 [facility] Triglyceride [Mass/Vol] 137 mg/dL <199 [facility] Comment on above: The drugs N-Acetylcy steine and Metamizole may falsely depress this assay.Serum Triglycerides Reference Interval Normal <150 mg/dL Borderline high 150 - 199 mg/dL High 200 - 499 mg/dL Very High > or = 500 mg/dL Laboratory - Chemistry and C hemistry - challengeOrdered By: Ladonna Pond on 11-16-2022 ALP [Catalytic activity/Vol] 60 U/L 45-117 [facility] ALT [Catalytic activity/Vol] 17 U/L 13-56 [facility] CO2 [Moles/Vol] 27.0 mmol/L 21.0-32.0 [facility] Globulin (S) [Mass/Vol] 2.8 g/dL 2.2-4.2 [facility] Urea nitrogen/Creatinine [Mass ratio] 9.8 mg/mg 10-20 [facility] No Panel InformationOrdered By: Ladonna Pond on 11-16-2022 Estimated GFR (MDRD) Amer 78 mL/min >60 [facility] Comment on above: GFR Calc Estimated GFR (MDRD) Non-Af Amer 64 mL/min >60 [facility] Comment on above: Non- GFR Calc Serum or plasma albumin ilsa urement (mass/volume)Ordered By: Ladonna Pond on 11-16-2022 Albumin [Mass/Vol] 3.6 g/dL 3.2-5.0 [facility] Serum or plasma albumin/glob ulin mass ratioOrdered By: Ladonna Pond on 11-16-2022 Albumin/Globulin [Mass ratio] 1.3 {ratio} 0.9-2.4 [facility] Serum or plasma calcium ilsa urement (mass/volume)Ordered By: Ladonna Pond on 11-16-2022 Calcium [Mass/Vol] 9.1 mg/dL 8.5-10.1 [facility] Serum or plasma cholesterol in HDL measurement (mass/volume)Ordered By: Ladonna Pond on 11-16-2022 Cholesterol in HDL [Mass/Vol] 39 mg/dL >40 [facility] Comment on above: The drugs N-Acetylcy steine and Metamizole may falsely depress this assay. Reference Range HDL <40 mg/dL Low HDL Cholesterol HDL >or= 60 mg/dL High HDL Cholesterol Serum or plasma cholesterol in VLDL measurement (mass/volume)Ordered By: Ladonna Pond on 11-16-2022 Cholesterol in VLDL [Mass/Vol] 27 mg/dL 5-40 [facility] Serum or plasma creatinine m easurement (mass/volume)Ordered By: Ladonna Pond on 11-16-2022 Creatinine [Mass/Vol] 0.92 mg/dL 0.55-1.02 [facility] Comment on above: The validity of the calculated GFR & GFRAA in patients over 70 years has not been determined. Clinical correlation is essential. Serum or plasma low density lipoprotein (LDL) cholesterol measurement (mass/volume)Ordered By: Ladonna Pond on 11-16-2022 Cholesterol in LDL [Mass/Vol] 171 mg/dL 0-130 [facility] Serum or plasma urea nitroge n measurement (mass/volume)Ordered By: Ladonna Pond on 11-16-2022 Urea nitrogen [Mass/Vol] 9 mg/dL 7-18 [facility] Thin prep Papanicolaou smear with manual screeningOrdered By: Ladonna Pond on 11-16-2022 Thin prep Papanicolaou smear with manual screening 11 U/L 15-37 [facility] Thin prep Papanicolaou smear with manual screening 6 5-15 [facility] CURon 03-23-2019 CUR . MICRO - Microbiology PROCEDURE: Urine Culture [*1] SOURCE: Urine, Clean Catch BODY SITE: COLLECTED DATE/TIME: 03/21/2019 13:14 EDT RECEIVED DATE/TIME: 03/21/2019 19:26 EDT START DATE/TIME: 03/21/2019 19:26 EDT FREE TEXT SOURCE: FINAL REPORTS Final Report [] Verified Date/Time/Personnel: 03/23/2019 09:20 EDT 10,000 organisms per mL Escherichia coli PRELIMINARY REPORTS Preliminary Report [] Verified Date/Time/Personnel: 03/22/2019 14:36 EDT 10,000 organisms per mL Gram Negative Rods Final identification and CLINT to follow. SUSCEPTIBILITY RESULTS Escherichia coli Antibiotic CLINT Dilutn CLINT Interp Ampicillin >16 Resistant Cefazolin <=8 Susceptible Ciprofloxacin <=1 Susceptible Gentamicin <=4 Susceptible Levofloxacin <=2 Susceptible Meropenem <=1 Susceptible Nitrofurantoin <=32 Susceptible Piperacillin/ <=16 Susceptible Tazobactam Trimethoprim/ <=2/38 Susceptible Sulfa Performing Locations *1: This test was performed at: [facility], [address] [place] [address], [id number] [place] [address] ([place]) Comment on above: Performed By: #### C UR #### [address] [address] UAon 03-21-2019 Color (U) Yellow Normal [facility] ([place]) Comment on above: Performed By: #### U A #### [address] [address] Glucose (U) [Mass/Vol] Negative Normal Negative [facility] ([place]) Comment on above: Performed By: #### U A #### [place] [address] Ketones Ql (U) Negative Normal Neg-Trace [facility] ([place]) Comment on above: Performed By: #### U A #### [place] [address] UA Appear Clear Normal Clear [facility] ([place]) Comment on above: Performed By: #### U A #### [place] [address] UA Blood Negative Normal Neg-Trace [facility] ([place]) Comment on above: Performed By: #### U A #### [place] [address] UA Leuk Est Trace Normal Negative [facility] ([place]) Comment on above: Performed By: #### U A #### [place] [address] UA Nitrite Negative Normal Negative [facility] ([place]) Comment on above: Performed By: #### U A #### [place] [address] UA pH 5.0 Normal 5.0 - 8.0 [facility] ([place]) Comment on above: Performed By: #### U A #### [place] [id number] UA Protein Negative Normal Negative [facility] ([place]) Comment on above: Performed By: #### U A #### [place] [address] UA Spec Grav 1.015 Normal 1.006-1.029 [facility] ([place]) Comment on above: Performed By: #### U A #### [place] [address] UA Specimen Type Clean Catch Normal [facility] ([place]) Comment on above: Performed By: #### U A #### [place] [id number] UA Urobilinogen 0.2 E.U./dL Normal 0.2-1.0 [facility] ([place]) Comment on above: Performed By: #### U A #### [place] [address] Urobilinogen Qn (U) Negative Normal Neg-Trace [facility] ([place]) Comment on above: Performed By: #### U A #### [place] [address] .Auto Diffon 11-05-2018 Ammonia (P) [Mass/Vol] 0.40 10 3/mcL Normal 0.09-1.40 [facility] ([place]) Comment on above: Performed By: #### C BC, ADIFF, ANEU, TSH, CMP, GFR #### [place] [address] Basophils (Bld) [#/Vol] 0.00 10 3/mcL Normal 0.00-0.27 [facility] ([place]) Comment on above: Performed By: #### C BC, ADIFF, ANEU, TSH, CMP, GFR #### [place] [id number] Basophils/100 WBC (Bld) 0.4 % Normal 0.0-2.5 [facility] ([place]) Comment on above: Performed By: #### C BC, ADIFF, ANEU, TSH, CMP, GFR #### [place] [id number] Eosinophils (Bld) [#/Vol] 0.10 10 3/mcL Normal 0.00-0.65 [facility] ([place]) Comment on above: Performed By: #### C BC, ADIFF, ANEU, TSH, CMP, GFR #### [place] [id number] Eosinophils/100 WBC (Bld) 1.7 % Normal 0.0-6.0 [facility] ([place]) Comment on above: Performed By: #### C BC, ADIFF, ANEU, TSH, CMP, GFR #### [address] [address] Lymphocytes (Bld) [#/Vol] 2.20 10 3/mcL Normal 0.90-4.32 [facility] ([place]) Comment on above: Performed By: #### C BC, ADIFF, ANEU, TSH, CMP, GFR #### [address] [address] Lymphocytes/100 WBC (Bld) 33.5 % Normal 20.0-40.0 [facility] ([place]) Comment on above: Performed By: #### C BC, ADIFF, ANEU, TSH, CMP, GFR #### [address] [address] Monocytes/100 WBC (Bld) 6.1 % Normal 2.0-13.0 [facility] ([place]) Comment on above: Performed By: #### C BC, ADIFF, ANEU, TSH, CMP, GFR #### [address] [address] Neutrophils/100 WBC (Bld) 58.3 % Normal 50.0-75.0 [facility] ([place]) Comment on above: Performed By: #### C BC, ADIFF, ANEU, TSH, CMP, GFR #### [address] [address] .GFRon 11-05-2018 GFR Non- >60 Normal [facility] ([place]) Comment on above: Result Comment: GFR Population mean for , Non- Americans Ages 20-29 = 116 mL/min/1.73 sq.m. Ages 30-39 = 107 mL/min/1.73 sq.m. Ages 40-49 = 99 mL/min/1.73 sq.m. Ages 50-59 = 93 mL/min/1.73 sq.m. Ages 60-69 = 85 mL/min/1.73 sq.m. Ages 70+ = 75 mL/min/1.73 sq.m. Chronic Kidney Disease: Less than 60 mL/min/1.73 square meters End Stage Renal Disease: Less than 15 mL/min/1.73 square meters Performed By: #### C BC, ADIFF, ANEU, TSH, CMP, GFR #### [address] [address] GFR >60 Normal [facility] ([place]) Comment on above: Result Comment: GFR Population mean for , Non- Americans Ages 20-29 = 116 mL/min/1.73 sq.m. Ages 30-39 = 107 mL/min/1.73 sq.m. Ages 40-49 = 99 mL/min/1.73 sq.m. Ages 50-59 = 93 mL/min/1.73 sq.m. Ages 60-69 = 85 mL/min/1.73 sq.m. Ages 70+ = 75 mL/min/1.73 sq.m. Chronic Kidney Disease: Less than 60 mL/min/1.73 square meters End Stage Renal Disease: Less than 15 mL/min/1.73 square meters Performed By: #### C BC, ADIFF, ANEU, TSH, CMP, GFR #### [address] [address] .NEUABSon 11-05-2018 Neutrophils (Bld) [#/Vol] 3.80 10 3/mcL Normal 2.25-8.10 [facility] ([place]) Comment on above: Performed By: #### C BC, ADIFF, ANEU, TSH, CMP, GFR #### [address] [address] CBCon 11-05-2018 Erythrocyte distribution width (RBC) [Ratio] 13.8 % Normal 11.5-15.5 [facility] ([place]) Comment on above: Performed By: #### C BC, ADIFF, ANEU, TSH, CMP, GFR #### [address] [address] Hematocrit (Bld) [Volume fraction] 43.3 % Normal 34.0-46.0 [facility] ([place]) Comment on above: Performed By: #### C BC, ADIFF, ANEU, TSH, CMP, GFR #### [address] [address] Hemoglobin (Bld) [Mass/Vol] 14.4 G/dL Normal 12.0-16.0 [facility] ([place]) Comment on above: Performed By: #### C BC, ADIFF, ANEU, TSH, CMP, GFR #### [address] [address] MCH (RBC) [Entitic mass] 30.9 pg Normal 27.0-33.0 [facility] ([place]) Comment on above: Performed By: #### C BC, ADIFF, ANEU, TSH, CMP, GFR #### [address] [address] MCHC (RBC) [Mass/Vol] 33.3 G/dL Normal 32.0-36.0 [facility] ([place]) Comment on above: Performed By: #### C BC, ADIFF, ANEU, TSH, CMP, GFR #### [place] [id number] MCV (RBC) [Entitic vol] 92.8 fL Normal 80.0-99.0 [facility] ([place]) Comment on above: Performed By: #### C BC, ADIFF, ANEU, TSH, CMP, GFR #### [address] [address] Platelet mean volume (Bld) [Entitic vol] 7.8 fL Normal 6.6-10.5 [facility] ([place]) Comment on above: Performed By: #### C BC, ADIFF, ANEU, TSH, CMP, GFR #### [address] [address] Platelets (Bld) [#/Vol] 230 10 3/mcL Normal 150-450 [facility] ([place]) Comment on above: Performed By: #### C BC, ADIFF, ANEU, TSH, CMP, GFR #### [address] [address] RBC (Bld) [#/Vol] 4.66 10 6/mcL Normal 4.10-5.30 [facility] ([place]) Comment on above: Performed By: #### C BC, ADIFF, ANEU, TSH, CMP, GFR #### [place] [id number] WBC (Bld) [#/Vol] 6.50 10 3/mcL Normal 4.50-10.80 [facility] ([place]) Comment on above: Performed By: #### C BC, ADIFF, ANEU, TSH, CMP, GFR #### [place] [id number] CMPon 11-05-2018 Albumin/Globulin [Mass ratio] 1.2 {ratio} Normal 0.9-1.6 [facility] ([place]) Comment on above: Performed By: #### C BC, ADIFF, ANEU, TSH, CMP, GFR #### [place] [address] ALP [Catalytic activity/Vol] 69 U/L Normal 38-126 [facility] ([place]) Comment on above: Performed By: #### C BC, ADIFF, ANEU, TSH, CMP, GFR #### [place] [address] ALT [Catalytic activity/Vol] 18 U/L Normal 10-49 [facility] ([place]) Comment on above: Performed By: #### C BC, ADIFF, ANEU, TSH, CMP, GFR #### [place] [address] Bili Total 0.4 mg/dL Normal 0.2-1.2 [facility] ([place]) Comment on above: Performed By: #### C BC, ADIFF, ANEU, TSH, CMP, GFR #### [place] [address] Creatinine [Mass/Vol] 0.84 mg/dL Normal 0.50-1.20 [facility] ([place]) Comment on above: Performed By: #### C BC, ADIFF, ANEU, TSH, CMP, GFR #### [place] [id number] Globulin (S) [Mass/Vol] 3.2 G/dL Normal 1.5-3.8 [facility] ([place]) Comment on above: Performed By: #### C BC, ADIFF, ANEU, TSH, CMP, GFR #### [address] [address] Protein [Mass/Vol] 7.1 G/dL Normal 6.0-8.5 [facility] ([place]) Comment on above: Performed By: #### C BC, ADIFF, ANEU, TSH, CMP, GFR #### [address] [address] Urea nitrogen/Creatinine [Mass ratio] 16.7 ratio Normal 10.0-22.0 [facility] ([place]) Comment on above: Performed By: #### C BC, ADIFF, ANEU, TSH, CMP, GFR #### [address] [address] Albumin [Mass/Vol] 3.9 G/dL Normal 3.2-4.8 [facility] ([place]) Comment on above: Performed By: #### C BC, ADIFF, ANEU, TSH, CMP, GFR #### [address] [address] AST [Catalytic activity/Vol] 10 U/L Normal 8-34 [facility] ([place]) Comment on above: Performed By: #### C BC, ADIFF, ANEU, TSH, CMP, GFR #### [address] [address] Calcium [Mass/Vol] 9.3 mg/dL Normal 8.4-10.1 [facility] ([place] Comment on above: Performed By: #### C BC, ADIFF, ANEU, TSH, CMP, GFR #### [address] [address] Chloride [Moles/Vol] 105 mmol/L Normal 98-110 [facility] ([place]) Comment on above: Performed By: #### C BC, ADIFF, ANEU, TSH, CMP, GFR #### [address] [address] CO2 [Moles/Vol] 31 mmol/L Normal 22-32 [facility] ([place]) Comment on above: Performed By: #### C BC, ADIFF, ANEU, TSH, CMP, GFR #### [address] [address] Electrolyte Balance 8.0 mEq/L Normal 4.0-15.0 [facility] ([place]) Comment on above: Performed By: #### C BC, ADIFF, ANEU, TSH, CMP, GFR #### [place] [id number] Glucose [Mass/Vol] 93 mg/dL Normal 82-115 [facility] ([place] Comment on above: Performed By: #### C BC, ADIFF, ANEU, TSH, CMP, GFR #### [place] [id number] Potassium [Moles/Vol] 4.2 mmol/L Normal 3.5-5.0 [facility] ([place]) Comment on above: Performed By: #### C BC, ADIFF, ANEU, TSH, CMP, GFR #### [place] [id number] Sodium [Moles/Vol] 144 mmol/L Normal 136-145 [facility] ([place] Comment on above: Performed By: #### C BC, ADIFF, ANEU, TSH, CMP, GFR #### [place] [address] Urea nitrogen [Mass/Vol] 14.0 mg/dL Normal 8.0-22.0 [facility] ([place]) Comment on above: Performed By: #### C BC, ADIFF, ANEU, TSH, CMP, GFR #### [place] [id number] TSHon 11-05-2018 TSH Qn 1.270 mcIU/mL Normal 0.360-3.740 [facility] ([place]) Comment on above: Result Comment: Ricih wagoner note as of 05/06/17 new pediatric reference intervals were added for this test. Performed By: #### C BC, ADIFF, ANEU, TSH, CMP, GFR #### [place] [id number] UAon 11-05-2018 Color (U) Yellow Normal [facility] ([place]) Comment on above: Performed By: #### U A #### [address] [address] Glucose (U) [Mass/Vol] Negative Normal Negative [facility] ([place]) Comment on above: Performed By: #### U A #### [place] [address] Ketones Ql (U) Negative Normal Neg-Trace [facility] ([place]) Comment on above: Performed By: #### U A #### [place] [address] UA Appear Clear Normal Clear [facility] ([place] Comment on above: Performed By: #### U A #### [place] [address] UA Blood Negative Normal Neg-Trace [facility] ([place] Comment on above: Performed By: #### U A #### [place] [address] UA Leuk Est Negative Normal Negative [facility] ([place]) Comment on above: Performed By: #### U A #### [place] [address] UA Nitrite Negative Normal Negative [facility] ([place]) Comment on above: Performed By: #### U A #### [place] [address] UA pH 5.5 Normal 5.0 - 8.0 [facility] ([place]) Comment on above: Performed By: #### U A #### [place] [address] UA Protein Negative Normal Negative [facility] ([place] Comment on above: Performed By: #### U A #### [place] [address] UA Spec Grav 1.015 Normal 1.006-1.029 [facility] ([place] Comment on above: Performed By: #### U A #### [place] [address] UA Specimen Type Void Normal [facility] ([place]) Comment on above: Performed By: #### U A #### [address] [place], [place] [address] UA Urobilinogen 0.2 E.U./dL Normal 0.2-1.0 [facility] ([place]) Comment on above: Performed By: #### U A #### [facility] [address] [place] [address] Urobilinogen Qn (U) Negative Normal Neg-Trace [facility] ([place]) Comment on above: Performed By: #### U A #### [facility] [address] [place], [place] [id number] Encounters Encounter Date Encounter Type Care Provider Facility Start: 11-04-2024 End: 11-04-2024 ambulatory Meme Logan Facility:[facility] Start: 02-02-2024 Non-patient / Non-visit MD Radha Logan Work Phone: [facility] Start: 02-02-2024 End: 02-02-2024 ambulatory MD Meme Logan Work Phone: [facility] Work Phone: Start: 02-02-2024 End: 02-02-2024 Patient encounter procedure MD Meme Logan Work Phone: [facility] Work Phone: Start: 02-02-2024 End: 02-02-2024 ambulatory Meme Logan Facility:[facility] Start: 01-10-2024 End: 01-10-2024 ambulatory [facility] Work Phone: Start: 01-10-2024 End: 01-10-2024 Patient encounter procedure [facility] Work Phone: Start: 01-10-2024 End: 01-10-2024 ambulatory Ladonna Pond Facility:[facility] Start: 12-27-2023 End: 12-27-2023 ambulatory [facility] Work Phone: Start: 12-27-2023 End: 12-27-2023 Patient encounter procedure [facility] Start: 12-27-2023 End: 12-27-2023 ambulatory Ladonna Pond Facility:[facility] Start: 11-16-2022 End: 11-16-2022 ambulatory [facility] Work Phone: Start: 11-16-2022 End: 11-16-2022 Patient encounter procedure [facility] Procedures Date Procedure Procedure Detail Performing Clinician Start: 01-10-2024 Dual energy X-ray absorptiometry Payers Date Payer Category Payer Self-pay 2023 Medicare [id number] Unknown [id number] Unknown [id number] Unknown [id number] Unknown [id number] Unknown [id number] Social History Date Type Detail Facility [facility] Work Phone: Start: 1955 Sex Assigned At Female [facility] Evaluation note Note Date & Type Note Facility Evaluation note No assessment information availa ble [facility] Work Phone: Summary Purpose Family History No Family History Records FoundNo Family History Records Found Advance Directives No Advanced Directives Records FoundNo Advanced Directives Records Found Chief Complaint and Reason for Visit Chief Complaint OSTEO Chief Complaint OSTEO MITRAL VALVE DISORDER Additional Source Comments INFORMATION SOURCE (unrecogn ized section and content) DATE CREATED AUTHOR 10/15/[address] [facility] ([place]) DATE CREATED AUTHOR AUTHOR'S JULIANNE ATION 11/26/2024 [facility] Care Teams (unrecognized sec tion and content) Team Status: Active Member Role Status Dates Meme Logan MD Primary Care Provider Active Team Status: Active Member Role Status Zain Logan MD Primary Care Provider Active Dr. Herminio Timmosn MD Attending Provider Activ e Team Status: Inactive Member Role Status Zain Pond DO Primary Care Provider, Attending Provider Active Team Status: Inactive Member Role Status Zain Logan MD Primary Care Provide r, Attending Provider, Referring Provider Active Team Status: Inactive Member Role Status Zain Pond DO Attending Provider, Referring Pr ovider Active Meme Logan MD Primary Care Provider Active Team Status: Active Member Role Status Zain Pond , Primary Care Provider Active Team Status: Inactive Member Role Status Zain Pond , Primary Care Provi hossein, Attending Provider, Referring Provider Active Goals (unrecognized section and content) Goals may be documented in a n alternate sectionGoals may be documented in an alternate sectionGoals may be documented in an alternate sectionGoals may be documented in an alternate section FOR RECORDS PERTAINING TO PATIENTS WHO ARE OR HAVE BEEN ENROLLED IN A CHEMICAL DEPENDENCY/SUBSTANCEABUSE PROGRAM, SOME INFORMATION MAY BE OMITTED. This clinical summary was aggregated from multiple sources. Caution should be exercised in using it in the provision of clinical care. This summary normalizes information from multiple sources, and as a consequence, information in this document may materially change the coding, format and clinical context of patient data. In addition, data may be omitted in some cases. CLINICAL DECISIONS SHOULD BE BASED ON THE PRIMARY CLINICAL RECORDS. [facility] [employer] [facility] provides no warranty or guarantee of the accuracy or completeness of information in this document.
--- NOTE | 2025-06-14 10:36 | CM.ED ---
Social Work: Date of referral: 06/14/25 Reason for referral: Advanced Care Directives (ACD's) not on file. Referred by: Social Work Identification Patient provided consent to social work visit. Parks Worker requested a copy of ACD's which patient was agreeable to bringing in. Camelia Gaffney, RESERVOIR ENGINEERING MANAGER, TRAIN INSPECTOR
--- NOTE | 2025-06-14 10:40 | EDS_ITS ---
HPI History of Present Illness Chief Complaint: Lower Extremity Injury Informant: patient Narrative Narrative: Patient has been having pain in her right midfoot dorsally for the past 2 days that started all of a sudden, she denies any known injury. Does not remember exactly what she did when it started but she just recalls 1 minute not having the pain and then another minute having it and it has been there ever since. Hurts worse to put weight on it and walk. She states for the past 2 weeks she has been doing lots of heavy lifting and carrying of totes for a family member who is moving and unable to do the work herself. She has been carrying these totes up and down lots of steps as well but she recalls no specific injury. She states her whole foot feels a little tingly and numb. The pain however is fairly focal. No other symptoms anywhere else. PFSH PFSH Medical History High cholesterol Allergy/AdvReac Type Severity Reaction Status Date / Time Iodinated Contrast Media Allergy Angioedema Verified 06/14/25 09:21 (iodine contrast) [id number]-[id number] Reductase Allergy Itching Verified 06/14/25 09:21 Inhibitor vancomycin Allergy Itching Verified 06/14/25 09:21 adhesive tape (tape) AdvReac NEEDS Verified 06/14/25 09:21 FOLLOW-UP amoxicillin AdvReac Itching Verified 06/14/25 09:21 nitrofurantoin (From AdvReac Itching Verified 06/14/25 09:21 Macrodantin) Sulfa (Sulfonamide AdvReac Upset Verified 06/14/25 09:21 Antibiotics) Stomach sulfamethoxazole (From AdvReac Itching Verified 06/14/25 09:21 Bactrim) trimethoprim (From Bactrim) AdvReac Itching Verified 06/14/25 09:21 Social History Smoking Status: Never smoker ROS ROS ED Constitutional Constitutional ED: Denies chills or fever(s) Musculoskeletal Musculoskeletal: Reports extremity pain; Denies neck pain Integumentary Denies Abrasions, rash or wounds Neurologic Neurologic: Reports paresthesias RLE (Foot/toes only); Denies weakness EXAM Physical Exam Const Vital Signs: 06/14/25 09:21 Temperature 98.4 F Temperature Source Oral Pulse Rate 76 Respiratory Rate 18 Blood Pressure 137/94 H Blood Pressure Mean 108 Pulse Ox 98 Oxygen Delivery Method Room Air Positive well nourished and well developed General Appearance ED: well developed and NAD Neck full ROM and supple Resp normal respiratory effort Back/Spine normal ROM and normal to inspection Extremity Extremity Narrative: Normal inspection to the right foot, there may be slight amount of swelling compared with the left, but the patient did not and cannot appreciated. She has tenderness throughout the dorsal midfoot there is no erythema or crepitance or subcutaneous emphysema or other skin abnormalities to suggest a foreign body or obvious nidus for any infection. The toes and metatarsals are nontender. There is brisk cap refill. The ankle is nontender and she can move it without difficulty. When forcibly passively everting the foot, she has pain about the transtarsal joint, but not with inverting the foot. Neuro oriented x3, no focal motor deficits and no sensory deficits noted Sensorium / Orientation: alert Psych mental status grossly normal and thought process normal Skin no wounds Rashes: no rashes MDM MDM MDM Narrative Medical decision making narrative: Three-view x-ray series of the right foot and my interpretation is negative for acute fracture or dislocation. Radiology in agreement. As I discussed with the patient, the concern here would be for a stress fracture, she states she does have a history of osteoporosis making that possible. It is also possible to have an acute stress fracture with x-rays 2 days after the onset of pain not showing it. Therefore I am going to vie her a postop shoe, she has crutches at home if she needs them. I recommend weightbearing as tolerated for now but to follow-up with podiatry this coming week if symptoms persist as she may need reevaluation and repeat x-rays. Radiography Diagnostic Testing: Clinical Impression(s) from Imaging Studies Foot X-Ray 06/14/25 09:32 IMPRESSION: No acute osseous abnormalities. Reading Location: [facility] Discharge Plan Triage Chief Complaint: Lower Extremity Injury ED Provider: Rafael Mathews Dx/Rx/DC Orders Clinical Impression: Acute pain of right foot Instructions: Stress Fracture Primary Care Provider: Meme Logan Referrals: Lazaro Gaston MD [Med Staff - Active Staff] - 3-5 Days if not improving Meme Logan MD [Primary Care Provider] - Print Language: [place] Disposition Disposition: Home, Self Care
[2025-06-14 11:03] VITALS: BP 141/79; PULSE 78; RESP 16; TEMP 36.6; O2SAT 99
== END 2025-06-14 11:04 | disposition home or self-care (01) ==
PROVIDERS: Emergency Provider Emergency Medicine; PCP Family Medicine; Visit Provider Emergency Medicine
DX: M79.671 Pain in right foot (principal); E78.00 Pure hypercholesterolemia, unspecified
CPT/HCPCS: 73630; 99283